=== PATIENT | male | born 1975 | race Caucasian/White ===

== ENCOUNTER 2023-05-13 12:08 | Emergency (ER) | payer OTHER ==
[2023-05-13 12:17] VITALS: BP 139/94; PULSE 86; RESP 20; TEMP 99.3; BMI 35.0
[2023-05-13] MEDS ORDERED: ACETAMINOPHEN 500 MG TABLET (FP) PO ONE (12:49)
[2023-05-13] MEDS ORDERED: ACETAMINOPHEN 500 MG TABLET (FP) ONE (12:54)
[2023-05-13] MEDS ORDERED: KETOROLAC TROMETHAMINE 30 MG/1 ML VIAL IM ONE (14:22)
[2023-05-13] MEDS ORDERED: KETOROLAC TROMETHAMINE 30 MG/1 ML VIAL ONE (14:40)
== END 2023-05-13 16:51 | disposition home or self-care (01) ==
LOC: JER 12:08
PROC: 3E0233Z Introduction of Anti-inflammatory into Muscle, Percutaneous Approach (ICD-10-PCS; principal; 2023-05-13)
DX: M79.661 Pain in right lower leg (principal); R22.41 Localized swelling, mass and lump, right lower limb; W10.9XXA Fall (on) (from) unspecified stairs and steps, initial encounter
CPT/HCPCS: 73562-TC-RT-FY; 73590-TC-RT-FY; 73610-TC-RT-FY; 73630-TC-RT-FY; 99284-25